=== PATIENT | male | born 1945 | race Caucasian/White ===

== ENCOUNTER 2020-02-22 10:55 | Inpatient (IN) ==
[2020-02-16 13:42] LABS: Basophils # (Auto) 0.03 K/mcL (0.00-0.20); Basophils % (Auto) 0.2 % (0.0-2.0); Eosinophils % (Auto) 2.4 % (0.0-7.0); Hematocrit 45.4 % (41.0-55.0); Hemoglobin 14.4 g/dL (13.5-16.5); Lymphocytes # (Auto) 2.78 K/mcL (1.50-4.80); Lymphocytes % (Auto) 22.5 % (15.0-49.0); Mean Cell Volume 91.9 fL (80.0-100.0); Mean Corpuscular HGB Conc 31.7 g/dL (31.0-36.0); Mean Platelet Volume 11.7 fL (7.4-10.4); Monocytes # (Auto) 0.97 K/mcL (0.10-0.90); Monocytes % (Auto) 7.9 % (1.0-12.0); Platelet Count 281 K/mcL (140-440); RBC 4.94 M/mcL (4.50-5.90); WBC 12.3 K/mcL (4.5-11.0)
[2020-02-16 14:13] LABS: Blood Urea Nitrogen 11 mg/dL (8-23); Carbon Dioxide 24 mmol/L (22-30); Chloride 106 mmol/L (96-108); Glomerular Filtration Rate 64; Glucose 74 mg/dL (70-105)
[2020-02-16 16:04] LABS: Appearance,Urine CLEAR (Clear); Bilirubin,Urine Negative (Negative); Color,Urine YELLOW; Culture Indicated,Urine No; Glucose,Urine (UA) Negative (Negative); Ketones,Urine Negative (Negative); Leukocyte Esterase,Urine Negative /ug (Negative); Mucus,Urine FEW /hpf; Nitrate,Urine Negative (Negative); Protein,Urine Negative (Negative); Urine Blood 0.03 mg/dL (Negative); Urine RBC 7 /hpf (0-1); Urine Squamous Epithelial Cell 2 /hpf (0-4); Urine WBC 3 /hpf (0-4); Urobilinogen,Urine Negative
[~2020-02-22 10:55] MED LIST: ACETAMINOPHEN 500 MG TABLET PO SCH; CELECOXIB 200 MG CAPSULE PO SCH; IPRATROPIUM/ALBUTEROL 3 ML AMPUL.NEB NEB PRN; PREGABALIN 75 MG CAPSULE PO SCH; SCOPOLAMINE 1 PATCH PATCH TOPICAL PRN; ceFAZolin 2 GM in DEXTROSE 5% IN WATER 50 ML IV SCH; oxyCODONE 10 MG TAB.ER.12H PO SCH
[2020-02-28] MEDS ORDERED: CELECOXIB 200 MG CAPSULE PO SCH (06:00)
[2020-02-28] MEDS ORDERED: ACETAMINOPHEN 500 MG TABLET PO SCH (06:00)
[2020-02-28] MEDS ORDERED: oxyCODONE 10 MG TAB.ER.12H PO SCH (06:00)
[2020-02-28] MEDS ORDERED: ceFAZolin 2 GM in DEXTROSE 5% IN WATER 50 ML IV SCH (06:00)
[2020-02-28] MEDS ORDERED: PREGABALIN 75 MG CAPSULE PO SCH (06:00)
[2020-02-28] MEDS ORDERED: SCOPOLAMINE 1 PATCH PATCH TOPICAL PRN (06:00)
[2020-02-28] MEDS ORDERED: IPRATROPIUM/ALBUTEROL 3 ML AMPUL.NEB NEB PRN ×2 (06:00→10:22)
[2020-02-28] MEDS ORDERED: PROPOFOL 200 MG/20 ML VIAL IV ONE (09:01)
[2020-02-28] MEDS ORDERED: fentaNYL 100 MCG/2 ML VIAL IV ONE (09:01)
[2020-02-28] MEDS ORDERED: ePHEDrine 50 MG/ML AMPUL IV ONE (09:01)
[2020-02-28] MEDS ORDERED: KETAMINE 100 MG/ML ML ONE (09:01)
[2020-02-28] MEDS ORDERED: ESMOLOL 100 MG/10 ML VIAL IV ONE (09:01)
[2020-02-28] MEDS ORDERED: DEXAMETHASONE 10 MG/ML VIAL ONE (09:01)
[2020-02-28] MEDS ORDERED: LIDOCAINE HCL/PF 100 MG/5 ML SYRINGE IV ONE (09:01)
[2020-02-28] MEDS ORDERED: GLYCOPYRROLATE 0.2 MG/ML VIAL IV ONE (09:01)
[2020-02-28] MEDS ORDERED: TRANEXAMIC ACID 1,000 MG/10 ML VIAL IV ONE (09:01)
[2020-02-28] MEDS ORDERED: ONDANSETRON 4 MG/2 ML VIAL ONE (09:01)
[2020-02-28] MEDS ORDERED: MIDAZOLAM 2 MG/2 ML VIAL ONE (09:01)
[2020-02-28] MEDS ORDERED: GENTAMICIN SULFATE 800 MG/20 ML VIAL IR ONE (09:30)
[2020-02-28] MEDS ORDERED: BUPIVACAINE W/EPI 0.5% 50 ML VIAL IJ ONE (10:06)
[2020-02-28] MEDS ORDERED: METHOCARBAMOL 1,000 MG/10 ML VIAL IV PRN (10:22)
[2020-02-28] MEDS ORDERED: ONDANSETRON 4 MG/2 ML VIAL IV PRN ×2 (10:22→10:24)
[2020-02-28] MEDS ORDERED: fentaNYL 100 MCG/2 ML VIAL IV PRN (10:22)
[2020-02-28] MEDS ORDERED: MEPERIDINE 25 MG/ML SYRINGE IV PRN (10:22)
[2020-02-28] MEDS ORDERED: ACETAMINOPHEN 325 MG TABLET PO PRN (10:24)
[2020-02-28] MEDS ORDERED: BISACODYL 10 MG SUPP.RECT PR PRN (10:24)
[2020-02-28] MEDS ORDERED: BENZOCAINE/MENTHOL 1 LOZENGE PO PRN (10:24)
[2020-02-28] MEDS ORDERED: FLEETS ADULT ENEMA PR PRN (10:24)
[2020-02-28] MEDS ORDERED: TRANEXAMIC ACID 1,000 MG/10 ML VIAL IV SCH (10:24)
[2020-02-28] MEDS ORDERED: MAGNESIUM HYDROXIDE 30 ML ORAL.SUSP PO PRN (10:24)
[2020-02-28] MEDS ORDERED: HYDROmorphone 1 MG/ML SYRINGE IV PRN (10:24)
[2020-02-28] MEDS ORDERED: POLYETHYLENE GLYCOL 3350 17 GM PACKET PO PRN (10:24)
[2020-02-28] MEDS ORDERED: KETOROLAC 15 MG/ML VIAL IV PRN (10:24)
--- NOTE | 2020-02-28 10:24 | Brief Operative Note ---
Brief Operative Note Date of procedure: 02/28/20 Pre-op diagnosis: Left shoulder rca and torn bicep Post-op diagnosis: same Procedure: Left shoulder rca reverse tsa and bicep tenodesis Grafts/Implants: Yes Anesthesia: GETA Complications: none Surgeon: Mark Torrez [employer] Advisor: Ralph Melvin Estimated blood loss (cc): 100 Tourniquet Time (Minutes): 0 Specimens Removed/Pathology: none sent Condition: stable Disposition: PACU
[2020-02-28] MEDS ORDERED: HYDROcodone/APAP 5/325MG TABLET PO PRN (10:27)
[2020-02-28] MEDS ORDERED: predniSONE 20 MG TABLET PO PRN (10:27)
[2020-02-28] MEDS ORDERED: LACTATED RINGERS 1,000 ML IV SCH (10:30)
[2020-02-28] MEDS ORDERED: WARFARIN 2.5 MG TABLET PO SCH (10:30)
--- NOTE | 2020-02-28 10:30 | Discharge Plan ---
Discharge Instructions - TSA Patient Instructions Total Shoulder Protocol: Leave immobilizer in place except for bathing and ROM. Abduction pillow. Continue to wear sling until seen by physician. Codman Pendulum : These exercises use momentum produced by your body to move your shoulder joint. Bend your knees and shift your weight to your front leg, then back, allowing your arm to swing in the same directions. Using the same technique, alternately shift your weight between your right and left legs, allowing your arm to swing from side to side. These exercises are also performed in counterclockwise and clockwise circular motions. Typically these exercises are performed several times per day, for a set number repetitions or minutes, such as 20 times in a row or 5 minutes at a time. Discharge Plan Patient/Caregiver Discharge Instructions Activity: ambulate only with your walker and as per physical therapy Diet: Regular Diet Prescriptions: New hydrocodone-acetaminophen 10-325 mg Tablet 1 - 2 tab PO Q4HP PRN (Reason: Pain Level 3-6) Qty: 75 RF: 0 docusate sodium 100 mg Capsule 100 mg PO BID Qty: 60 RF: 0 No Action atorvastatin 20 MG tablet 10 mg PO DAILY RF: 0 ipratropium-albuterol 3 ML solution for nebulization 3 ml IH PRN PRN (Reason: Bronchodilation) RF: 0 theophylline 400 MG tablet extended release 24 hr 400 mg PO DAILY RF: 0 prednisone 20 MG tablet 40 mg PO DAILY PRN (Reason: Shortness Of Breath) RF: 0 warfarin 2.5 MG tablet 2.5 mg PO WEEKLY RF: 0 warfarin 5 MG tablet 5 mg PO DAILY RF: 0 hydrocodone-acetaminophen 5-325 mg Tablet 1 tab PO BID PRN (Reason: Pain) RF: 0 enoxaparin [Lovenox] 100 mg/mL Syringe 70 mg SUBCUT QDAY RF: 0 prednisone 20 MG tablet See Rx Instructions .ROUTE .COMPLEX RF: 0 Other Ambulatory Orders: Brace/Splint (ONCE) Location: None Selected Ordered By: Ralph Melvin Physical Therapy HI - TSA (Routine) Location: None Selected Ordered By: Ralph Melvin Follow Up Plan Follow up with: Ralph Melvin PA-C [Physician [employer]] - Patient Disposition: Home, Self-Care Prognosis: Good Rehab Potential: Good I certify that the patient requires SNF services: No Overall status at discharge: patient is progressing back to baseline Discharge Orders: Discharge Order (Routine); Ordered 02/29/20 Ordered By: Ralph Melvin
--- NOTE | 2020-02-28 11:28 | Operative Note ---
DATE OF OPERATION: 02/28/2020 PREOPERATIVE DIAGNOSIS: Left shoulder rotator cuff arthropathy, biceps tendinopathy and severe arthritis. POSTOPERATIVE DIAGNOSIS: Left shoulder rotator cuff arthropathy, biceps tendinopathy and severe arthritis. PROCEDURE: Left reverse total shoulder and a biceps tenodesis. SURGEON: Mark Torrez M.D. PHYSICAL THERAPY ASST: Ralph Melvin PA-C. This providers expertise and technical skill were required throughout the case. The GAB assisted with preoperative coordination, intraoperative retraction, wound closure, and dressing and splint application, as well as postoperative documentation and care coordination. ANESTHESIA: General LMA anesthesia. ESTIMATED BLOOD LOSS: About BLOOD LOSS: 100 mL. IMPLANTS: [place] implants of reverse total shoulder with a size 11 stem cementless with a 36 mm glenosphere metaglene, 4 screws and a 6 mm poly insert. DESCRIPTION OF PROCEDURE: The patient was brought to the operating room, put to sleep with general LMA anesthesia. Once asleep, the patient had the left shoulder, sterilely prepped and draped in the usual sterile fashion. A timeout was performed confirming this as the operative site by initials, consent form and x-rays. We confirmed that preoperative antibiotics and tranexamic acid had been given. Once this was done, Ioban was placed over the skin. Confirming all this information, we then started the case with a deltopectoral approach. He was sat in a beach chair position and well-positioned, reclining to keep the heart to equal with his knees. We made a deltopectoral approach. We retracted the deltoid and cephalic vein laterally, exposed the joint. We made an incision for the biceps tendon. This was dislocated out of the bicipital groove. This was then released proximally and then sutured to the pectoralis major with two separate [id number] stitches. We roughened the bone as well. We irrigated thoroughly. Once the repair of the biceps tendon was done, we then released the subscap. A stitch was placed in the subscap to keep it from the operative field. We then dislocated the humeral head and released the capsule inferiorly around the neck. We made our surgical neck cut using a 130 degree guide with 20 degrees of retroversion. Once this was done, we then subluxed the head posteriorly. We were able to perform a 360-degree capsular release and remove the remnants of the biceps and labrum. We placed the pin centrally and then we placed a drill hole centrally. We reamed up to the size of 40 on the glenoid making sure the bleeding surface was on the inferior 50%. Once done, we then placed the metaglene on the glenoid. Central screw measuring 40 mm and the other screws measuring 36, 32 and 32 mm were placed peripherally. These all locked into the plate and tensioned. We then placed a 36 mm glenosphere with 2 mm of offset, 2 mm of eccentricity. We then reamed up the humerus up to the size of 11. We broached to this size and trialed a standard which was 4 mm, and a 6 mm poly insert. The 6 was most appropriate for tension of the ligaments with 1-2 mm of play within the glenoid with a shuck test. We irrigated thoroughly, placed the stem with a small amount of cement distally for immediate fixation. We placed our poly insert, which was tapped into place, reduced the shoulder and took it through the full arc of motion without difficulty. We irrigated thoroughly. We then released the subscap and sutures were removed. We irrigated thoroughly and closed the deltopectoral interval after deflating the tourniquet. Soft tissues were injected around the wound postoperatively and the wound was closed with Stratafix and adhesive closure. He was placed in a Donjoy sling. Estimated blood loss about 100 mL. [facility]:edward Job ID: [id number] Doc ID: [id number] Mark Torrez MD
[2020-02-28] MEDS: LACTATED RINGERS 1,000 ML IV SCH (11:30)
--- NOTE | 2020-02-28 11:55 | XRay Report ---
CLINICAL INFORMATION: Post-Op Total Shoulder COMPARISON: None. FINDINGS: Total shoulder prostheses is in anatomic alignment. No osseous abnormality. Gas and soft tissue swelling seen as expected IMPRESSION: Negative Interpreted and Authenticated by: Yeison Sharma 02/28/20
[2020-02-28 12:52] LABS: INR 0.9 (0.9-1.1); Prothrombin Time 12.8 sec (11.9-14.5)
[2020-02-28] MEDS: HYDROcodone/APAP 10/325MG TABLET PO PRN (15:09)
[2020-02-28] MEDS: 0.9 % SODIUM CHLORIDE 10 ML SYRINGE IV SCH ×2 (15:11→20:24)
[2020-02-28] MEDS: ceFAZolin 1 GM VIAL IV SCH (16:56)
[2020-02-28] MEDS: DOCUSATE SODIUM 100 MG CAPSULE PO SCH (20:24)
[2020-02-28] MEDS ORDERED: SENNOSIDES 1 TABLET PO SCH (21:00)
[2020-02-28] MEDS ORDERED: TEMAZEPAM 15 MG CAPSULE PO PRN (21:00)
[2020-02-28] MEDS ORDERED: ASPIRIN 81 MG TAB.CHEW PO SCH (21:00)
[2020-02-29] MEDS: ceFAZolin 1 GM VIAL IV SCH (00:36)
[2020-02-29] MEDS: LACTATED RINGERS 1,000 ML IV SCH ×2 (00:36→06:03)
[2020-02-29] MEDS: 0.9 % SODIUM CHLORIDE 10 ML SYRINGE IV SCH (05:56)
[2020-02-29] MEDS: HYDROcodone/APAP 10/325MG TABLET PO PRN ×2 (05:56→10:38)
[2020-02-29 07:14] LABS: INR 0.9 (0.9-1.1); Prothrombin Time 12.8 sec (11.9-14.5)
--- NOTE | 2020-02-29 07:48 | Orthopedic Progress Note ---
SUBJECTIVE Subjective Patient information: Note initiated : 02/29/20 at 7:46 am Service Date, if different from initiated Date: [] Patient: Sergey Johnson 75 y/o M admitted on 02/28/20 for Left Reverse Total Shoulder Arthroplasty. Chief Complaint: [Pt is stable this morning on post operative day without any significant concerns or complaints. Patients vital signs have remained stable. Patients dressing is dry and is grossly intact from a neurovascular and motor standpoint. Patients 10 point ROS is otherwise negative. ] Constitutional Vitals: Vital Signs Temp Pulse Resp BP Pulse Ox 98.4 F 62 18 94/59 93 02/29/20 07:20 02/29/20 07:20 02/29/20 07:20 02/29/20 07:20 02/29/20 07:20 Period Temp Pulse Resp BP Sys/Bledsoe Pulse Ox Last 24 Hr 97.3 F-98.5 F 62-91 11-35 94-135/59-91 91-100 Intake and Output 02/28/20 02/29/20 02/29/20 21:59 05:59 13:59 Intake Total 500 475 Output Total 450 Balance 500 25 Weight 182 lb Intake & Output: Intake & Output 02/28/20 02/29/20 02/29/20 21:59 05:59 13:59 Intake Total 500 475 Output Total 450 Balance 500 25 Weight 182 lb Intake: Oral 500 475 Output: Void Amount 450 Other: Meal Dinner Percent of Meal Consumed 75% Feeding Ability Independent # Voids 1 Extremities Exam Extremities exam: Present normal capillary refill, normal inspection and neurovascular intact OBJ DATA Labs CBC & Chem 7: 02/16/20 08:49 02/16/20 08:48 Meds: Medications Acetaminophen (Tylenol) 650 mg PO Q6HP PRN PRN Reason: PAIN/FEVER > 101 Hydrocodone Bitart/Acetaminophen (Fate 10/325mg) 0 tab PO Q4HP PRN PRN Reason: PAIN LEVEL 3-6 Last Admin: 02/29/20 05:56 Dose: 1 tab Documented by: Atorvastatin Calcium (Lipitor) 10 mg PO DAILY [facility]AY[facility] Bisacodyl (Dulcolax) 10 mg NM Q2-3DAYS PRN PRN Reason: Constipation Docusate Sodium (Colace) 100 mg PO BID [facility] Last Admin: 02/28/20 20:24 Dose: 100 mg Documented by: Hydromorphone HCl (Dilaudid) 0 mg IV Q2HP PRN; Protocol PRN Reason: Per Pain Protocol Lactated Ringer's (Lactated Ringers) 1,000 mls @ 100 mls/hr IV .Q10H [facility] Last Admin: 02/29/20 06:03 Dose: Not Given Documented by: Ketorolac Tromethamine (Toradol) 15 mg IV Q6HP PRN PRN Reason: Pain Stop: 03/01/20 10:25 Magnesium Hydroxide (Milk Of Magnesia) 30 ml PO BIDP PRN PRN Reason: Constipation Ondansetron HCl (Zofran) 4 mg IV Q4HP PRN PRN Reason: Nausea And Vomiting Polyethylene Glycol (Miralax) 17 gm PO DAILYP PRN PRN Reason: Constipation Prednisone (Prednisone) 40 mg PO DAILYP PRN PRN Reason: Shortness Of Breath Senna (Senokot) 2 tab PO HS [facility] Last Admin: 02/28/20 20:24 Dose: 2 tab Documented by: Sodium Biphosphate/Sodium Phosphate (Fleets Adult) 1 dose NM Q3-4DAYS PRN PRN Reason: Constipation Sodium Chloride (Saline Flush) 10 ml IV Q8 [facility] Last Admin: 02/29/20 05:56 Dose: 10 ml Documented by: Temazepam (Restoril) 15 mg PO HSP PRN PRN Reason: Insomnia Theophylline (Uniphyll) 400 mg PO DAILY [facility] Throat Lozenges (Cepacol) 1 lozenge PO PRN PRN PRN Reason: Sore Throat Warfarin Sodium (Coumadin Per Pharmacy) 1 order PO DAILY@1400 [facility] Last Admin: 02/28/20 15:38 Dose: Not Given Documented by: A/P Narrative A/P Narrative: The patient has been educated regarding dressing care, Physical Therapy recommendations, home exercises, restrictions, and follow up appointments. The patient has had all necessary DME prescribed. The patient has remained relatively stable during their hospital course. Time Spent With Patient Time: Total time spent is greater than 50% in coordination of care (as documented) at patient's floor/unit and/or counseling patient: Total time spent with greater than 50% in coordination of care (as documented) at patient's floor/unit and/or counseling patient:: less than 15 minutes
[2020-02-29] MEDS: DOCUSATE SODIUM 100 MG CAPSULE PO SCH (08:30)
[2020-02-29] MEDS ORDERED: THEOPHYLLINE ANHYDROUS 400 MG TAB.XL.24H PO SCH (09:00)
[2020-02-29] MEDS ORDERED: ATORVASTATIN 10 MG TABLET PO SCH (09:00)
== END 2020-02-29 11:10 | disposition home or self-care (01) | DRG 483 ==
LOC: MEDSUR 02-28 06:30
PROVIDERS: ADMIT Orthopaedic Surgery; ATTEND Orthopaedic Surgery